=== PATIENT | female | born 1935 | race Caucasian/White ===

== ENCOUNTER 2017-07-04 15:25 | Outpatient (CLI) | payer MEDICARE, BC | END 2017-07-04 15:26 | disposition home or self-care (01) | LOC: LAB.F 15:25 | PROVIDERS: ATTEND Internal Medicine | DX: Z79.01 Long term (current) use of anticoagulants (principal); Z86.718 Personal history of other venous thrombosis and embolism; Z96.642 Presence of left artificial hip joint | CPT/HCPCS: 85610 ==

== ENCOUNTER 2022-12-05 08:00 | Outpatient (CLI) | payer MEDICARE, BC ==
--- NOTE | 2022-12-05 16:10 | XRAY Report ---
PROCEDURE: Knee 3 View RT INDICATIONS: RIGHT KNEE PAIN TECHNIQUE: 3 views of the right knee(s) were acquired. COMPARISON: None. FINDINGS: Bones: No fractures or dislocations. No suspicious bony lesions. Tricompartmental knee arthroplas ty has been performed. Soft tissues: No knee joint effusion. No suspicious soft tissue calcifications or masses. IMPRESSION: Expected appearance of knee arthroplasty. No acute fracture. No osseous lesion. If symptoms and/or cl inical suspicion for pathology continue, further assessment with repeat plain films, or advanced imag ing (e.g., CT, MRI, or bone scan) is recommended for further assessment. Reviewed by: Lexis Cabrera MD on 12/05/2022 4:09 PM PDT Approved by: Lexis Cabrera MD on 12/05/2022 4:09 PM PDT Station ID: [id number]
--- NOTE | 2022-12-05 16:10 | XRAY Report ---
PROCEDURE: Wrist 2 View RT INDICATIONS: RIGHT WRIST PAIN TECHNIQUE: 2 views of the wrist were acquired. COMPARISON: None. FINDINGS: Bones: No fractures or dislocations. No suspicious bony lesions. Joint space narrowing and periar ticular osteophyte formation at the scaphotrapezial and first metacarpal joints. Scaphoid view: Not requested Soft tissues: No suspicious soft tissue calcifications or masses. IMPRESSION: Osteoarthritis. No acute fracture. No osseous lesion. If symptoms and/or clinical suspicion for patho logy continue, further assessment with repeat plain films, or advanced imaging (e.g., CT, MRI, or bon e scan) is recommended for further assessment. Reviewed by: Lexis Cabrera MD on 12/05/2022 4:09 PM PDT Approved by: Lexis Cabrera MD on 12/05/2022 4:09 PM PDT Station ID: [id number]
--- NOTE | 2022-12-05 16:10 | XRAY Report ---
PROCEDURE: Shoulder 3 View RT INDICATIONS: RIGHT SHOULDER PAIN TECHNIQUE: 3 views of the shoulder were acquired. COMPARISON: None. FINDINGS: Bones: No fractures or dislocations. No suspicious bony lesions. Visualized ribs appear intact. Periarticular osteophyte formation at the acromioclavicular and glenohumeral joints. Soft tissues: No suspicious soft tissue calcifications. IMPRESSION: Osteoarthritis. No acute fracture. No osseous lesion. If symptoms and/or clinical suspici on for pathology continue, further assessment with repeat plain films, or advanced imaging (e.g., CT, MRI, or bone scan) is recommended for further assessment. Reviewed by: Lexis Cabrera MD on 12/05/2022 4:09 PM PDT Approved by: Lexis Cabrera MD on 12/05/2022 4:09 PM PDT Station ID: [id number]
--- NOTE | 2022-12-05 16:11 | XRAY Report ---
PROCEDURE: Hip w/Pelvis 1V RT INDICATIONS: RIGHT HIP PAIN TECHNIQUE: AP pelvis with lateral view(s) of the right hip(s). COMPARISON: None. FINDINGS: Bones: No fractures or dislocations. No suspicious bony lesions. Bilateral hip arthroplasty. Soft tissues: No suspicious soft tissue calcifications or masses. IMPRESSION: Bilateral hip arthroplasty. No acute fracture. No osseous lesion. If symptoms and/or clinical suspici on for pathology continue, further assessment with repeat plain films, or advanced imaging (e.g., CT, MRI, or bone scan) is recommended for further assessment. Reviewed by: Lexis Cabrera MD on 12/05/2022 4:09 PM PDT Approved by: Lexis Cabrera MD on 12/05/2022 4:09 PM PDT Station ID: [id number]
== END 2022-12-05 23:59 | disposition home or self-care (01) ==
LOC: DI.S 08:00
PROVIDERS: ATTEND Registered Nurse
DX: M25.561 Pain in right knee (principal); M19.031 Primary osteoarthritis, right wrist; M19.011 Primary osteoarthritis, right shoulder; M25.551 Pain in right hip; Z96.651 Presence of right artificial knee joint; Z96.643 Presence of artificial hip joint, bilateral

== ENCOUNTER 2022-12-13 08:00 | Outpatient (CLI) | payer MEDICARE, BC ==
--- NOTE | 2022-12-13 21:05 | XRAY Report ---
PROCEDURE: Hand 2 View BILAT INDICATIONS: RIGHT HAND PAIN/ARTHRITIS TECHNIQUE: 2 views of both hands acquired. COMPARISON: Right wrist radiographs 12/05/2022 FINDINGS: Bones: No acute fractures or dislocations. No suspicious bony lesions. Generalized osteopenia. Prom inent arthritic changes are seen at the first carpometacarpal joints bilaterally, the left first meta carpophalangeal joint, and throughout the interphalangeal joints of the fingers, worst at the second distal interphalangeal joints bilaterally. Mild joint space narrowing is seen at the metacarpophalang eal joints. Possible juxta-articular lucencies at the metacarpal heads could represent subchondral cy stic changes or chronic osseous erosions. Left distal radial fracture fixation hardware is partially imaged. Soft tissues: Nonspecific soft tissue edema is seen in the right ring finger at the level of the pro ximal interphalangeal joint. IMPRESSION: 1.Bilateral multifocal severe arthritic changes, worst at the bilateral distal interphalangeal joints of the second fingers as well as the right first carpometacarpal joint. The overall pattern is most compatible with severe primary osteoarthrosis, although some metacarpal involvement is present and cy stic changes versus chronic erosions are seen in the metacarpal heads, which raises the possibility o f an inflammatory arthritis with superimposed degenerative changes. Recommend correlation with clinic al findings and serologies. 2.Nonspecific soft tissue edema surrounding the right fourth proximal interphalangeal joint. No acute osseous fracture is seen on the provided views. Reviewed by: Teodoro Christianson MD on 12/13/2022 9:04 PM PDT Approved by: Teodoro Christianson MD on 12/13/2022 9:04 PM PDT Station ID: [id number]
== END 2022-12-13 23:59 | disposition home or self-care (01) ==
LOC: DI.S 08:00
PROVIDERS: ATTEND Physician Assistant Medical
DX: M79.644 Pain in right finger(s) (principal); M19.041 Primary osteoarthritis, right hand; M18.11 Unilateral primary osteoarthritis of first carpometacarpal joint, right hand

== ENCOUNTER 2023-01-04 08:00 | Outpatient (CLI) | payer MEDICARE, BC | END 2023-01-04 23:59 | disposition home or self-care (01) | LOC: LAB.S 08:00 | PROVIDERS: ATTEND Physician Assistant | DX: R30.0 Dysuria (principal) | CPT/HCPCS: 87086 ==

== ENCOUNTER 2023-05-06 08:00 | Outpatient (CLI) | payer MEDICARE, BC | END 2023-05-06 23:59 | disposition home or self-care (01) | LOC: LAB.S 08:00 | PROVIDERS: ATTEND Physician Assistant Medical | DX: N39.0 Urinary tract infection, site not specified (principal) | CPT/HCPCS: 87077; 87086; 87181 ==

== ENCOUNTER 2023-06-09 11:02 | Outpatient (CLI) | payer MEDICARE, BC ==
[2023-06-09 14:30] LABS: BASOPHILS % (AUTO) 0.3 %; EOSINOPHILS # (AUTO) 0.2 10^3/uL (0.0-0.7); EOSINOPHILS % (AUTO) 2.6 %; HCT - HEMATOCRIT 41.5 % (37.0-47.0); HGB - HEMOGLOBIN 13.4 g/dL (12.0-16.0); LYMPHOCYTES # (AUTO) 1.5 10^3/uL (1.5-3.5); LYMPHOCYTES % (AUTO) 25.1 %; MEAN CORPUSCULAR HEMOGLOBIN 30.3 pg (27.0-31.0); MEAN CORPUSCULAR HGB CONC 32.3 g/dL (32.0-36.0); MEAN CORPUSCULAR VOLUME 93.9 fL (81.0-99.0); MONOCYTES # (AUTO) 0.7 10^3/uL (0.0-1.0); NEUTROPHILS # (AUTO) 3.7 10^3/uL (1.5-6.6); NEUTROPHILS % (AUTO) 60.7 %; PLT - PLATELET COUNT 173 10^3/uL (130-450); RED BLOOD COUNT 4.42 10^6/uL (4.20-5.40); RED CELL DISTRIBUTION WIDTH 13.3 % (12.0-15.0); WHITE BLOOD COUNT 6.1 x10^3/uL (4.8-10.8)
[2023-06-09 14:48] LABS: ALBUMIN 4.2 g/dL (3.2-5.5); ALBUMIN/GLOBULIN RATIO 1.6 (1.0-2.2); BILIRUBIN,TOTAL 0.5 mg/dL (0.2-1.0); CALCIUM 9.2 mg/dL (8.5-10.3); CREATININE 0.7 mg/dL (0.6-1.3); POTASSIUM 3.7 mmol/L (3.5-4.5); TOTAL PROTEIN 6.8 g/dL (6.4-8.9)
== END 2023-06-09 11:03 | disposition home or self-care (01) ==
LOC: LAB.S 11:02
PROVIDERS: ATTEND Physician Assistant Medical
DX: I10 Essential (primary) hypertension (principal)
CPT/HCPCS: 36415; 80053; 85025

== ENCOUNTER 2023-08-20 10:20 | Outpatient (CLI) | payer MEDICARE ==
--- NOTE | 2023-08-20 17:50 | Ultrasound Report ---
PROCEDURE: Soft Tissue Head or Neck INDICATIONS: NECK MASS TECHNIQUE: Real-time scanning was performed of the thyroid gland, with image documentation. COMPARISON: None FINDINGS: Right: Thyroid lobe measures 5.6 x 4.7 x 5.0 cm, and is homogeneous in echotexture. Left: Thyroid lobe measures 3.5 x 1.4 x 1.0 cm, and is homogenous in echotexture. Isthmus: 0.33 cm thick. Nodule number: One Location: Right thyroid, corresponding with palpable abnormality Size: 5.6 x 4.7 x 5.0 cm. Composition: Predominantly solid. Echogenicity: Hypoechoic. Shape: wider than tall (0 points). Margins: Smooth (0 points). Echogenic foci: None (0 points). Total points: 4 ACR TI-RADS category: 4 Nodule number: Two Location: Left Size: 0.4 x 0.3 x 0.4 cm. Composition: Cystic. Echogenicity: Anechoic. Shape: wider than tall (0 points). Margins: Smooth (0 points). Echogenic foci: None (0 points). Total points: 0 ACR TI-RADS category: 1 IMPRESSION: Category 4 right thyroid nodule corresponds with the palpable abnormality. Best practice guidelines s uggest FNA evaluation. ACR TI-RADS definitions and recommendations: TI-RADS 1 (benign): 0 points. FNA not needed. TI-RADS 2 (not suspicious): 2 points. FNA not needed. TI-RADS 3 (mildly suspicious): 3 points. "FNA if 2.5 cm or larger, follow up if 1.5 cm or larger (at 1, 3, and 5 years). TI-RADS 4 (moderately suspicious): 4-6 points. "FNA if 1.5 cm or larger, follow up if 1 cm or larger (at 1, 2, 3, and 5 years). TI-RADS 5 (highly suspicious): 7 points or more. "FNA if 1 cm or larger, follow up if 0.5 cm or larger (every year for 5 years). Reviewed by: Ronen Pimentel MD on 08/20/2023 4:49 PM AKST Approved by: Ronen Pimentel MD on 08/20/2023 4:49 PM AKST Station ID: [id number]
== END 2023-08-20 10:21 | disposition home or self-care (01) ==
LOC: DI 10:20
PROVIDERS: ATTEND Physician Assistant Medical
DX: E04.2 Nontoxic multinodular goiter (principal)

== ENCOUNTER 2023-09-09 09:23 | Outpatient (CLI) | payer MEDICARE ==
[~2023-09-09 09:23] MED LIST: LIDOCAINE-MPF 1% 5 ML VIAL ONE
[2023-09-09] MEDS: LIDOCAINE-MPF 1% 5 ML VIAL TD ONE (10:45)
--- NOTE | 2023-09-09 11:46 | Ultrasound Report ---
PROCEDURE: FNA Bx w/US Gdn 1st Les INDICATIONS: THYROID MASS TECHNIQUE: The indications, alternatives, benefits, risks, and complications of the procedure were explained to the patient. Written informed consent was obtained and placed in the chart. The area of interest wa s examined sonographically and a site was chosen for ultrasound guided percutaneous sampling. The sk in was prepared and draped in the usual fashion, and anesthetized with 1% lidocaine infiltrated from the skin down to the lesion. Multiple passes were then performed, with contents emptied into an appr [facility] pathology specimen container. A bandage was applied to the area of access at completion of t he study. COMPARISON: 08/20/2023 FINDINGS: Location(s) of lesion(s) sampled: Right palpable nodule [place]: 25 gauge hypodermic needles. Number of passes: 4 Medications: 1% lidocaine for local anaesthesia. Complications: None. IMPRESSION: Successful ultrasound-guided right thyroid fine needle aspiration, with cytology results pending. Reviewed by: Oren Carter MD on 09/09/2023 11:45 AM PST Approved by: Oren Carter MD on 09/09/2023 11:45 AM PST Station ID: [id number]
== END 2023-09-09 09:24 | disposition home or self-care (01) ==
LOC: DI 09:23
PROVIDERS: ATTEND Physician Assistant Medical
DX: E04.1 Nontoxic single thyroid nodule (principal)
CPT/HCPCS: 10005

== ENCOUNTER 2024-03-01 13:20 | Outpatient (CLI) | payer MEDICARE ==
[2024-03-01 20:28] LABS: THYROID STIMULATING HORMONE 2.45 uIU/mL (0.34-5.60)
== END 2024-03-01 13:21 | disposition home or self-care (01) ==
LOC: LAB.S 13:20
PROVIDERS: ATTEND Nurse Practitioner Gerontology
DX: E07.9 Disorder of thyroid, unspecified (principal)
CPT/HCPCS: 36415; 84439; 84443; 84481

== ENCOUNTER 2024-03-05 08:37 | Outpatient (CLI) | payer MEDICARE ==
--- NOTE | 2024-03-06 14:09 | Ultrasound Report ---
PROCEDURE: Soft Tissue Head or Neck INDICATIONS: THYROID MASS TECHNIQUE: Real-time scanning was performed of the thyroid gland, with image documentation. COMPARISON: 08/20/2023 FINDINGS: Right: Thyroid lobe measures 6.7 x 4.5 x 5.1 cm. Left: Thyroid lobe measures 3.2 x 1.2 x 1.2 cm Isthmus: 0.5 cm thick. Echotexture: Homogeneous. Right dominant thyroid nodule is similar to prior measuring 5.6 x 4.1 x 4.8 cm. It is partially solid and partially cystic. Overall hypoechoic appearance. Biopsy was performed. TR 3. No other significant nodule IMPRESSION: Similar dominant right thyroid nodule. This was biopsied. ACR TI-RADS definitions and recommendations: TI-RADS 1 (benign): 0 points. FNA not needed. TI-RADS 2 (not suspicious): 2 points. FNA not needed. TI-RADS 3 (mildly suspicious): 3 points. "FNA if 2.5 cm or larger, follow up if 1.5 cm or larger (at 1, 3, and 5 years). TI-RADS 4 (moderately suspicious): 4-6 points. "FNA if 1.5 cm or larger, follow up if 1 cm or larger (at 1, 2, 3, and 5 years). TI-RADS 5 (highly suspicious): 7 points or more. "FNA if 1 cm or larger, follow up if 0.5 cm or larger (every year for 5 years). Reviewed by: Oren Carter MD on 03/06/2024 2:07 PM PDT Approved by: Oren Carter MD on 03/06/2024 2:07 PM PDT Station ID: [id number]
== END 2024-03-05 08:38 | disposition home or self-care (01) ==
LOC: DI 08:37
PROVIDERS: ATTEND Nurse Practitioner Gerontology
DX: E04.1 Nontoxic single thyroid nodule (principal)